=== PATIENT | female | born 1995 | race Two or more races ===

== ENCOUNTER → 2020-03-14 | Outpatient (REF) | payer BC ==
[2020-03-14 22:39] LABS: CHLAMYDIA DNA AMPLIFICATION NEGATIVE (NEGATIVE); GC DNA AMPLIFICATION NEGATIVE (NEGATIVE)
== END ==
LOC: M LAB 19:07
PROVIDERS: ATTEND Physician Assistant
DX: R30.0 Dysuria (principal)